=== PATIENT | male | born 1990 | race Caucasian/White ===

== ENCOUNTER 2016-09-13 22:36 | Emergency (ER) | payer SELFPAY ==
[~2016-09-13 22:36] MED LIST: ANAPHYLACTIC KI1 KIT IM; ATARAX PO; BENADRYL PO; ELIMITE TOP; ELIMITE60 GM TOP; IBUPROFEN800 MG PO; NO MEDICATIONS; PEN-VEE K PO; PREDNISONE PO; TYLENOL #3 PO; VEETIDS 500500 M1 PO
== END 2016-09-13 23:01 | disposition home or self-care (01) ==
LOC: SED 22:36
DX: K05.219 Aggressive periodontitis, localized, unspecified severity (principal); K02.9 Dental caries, unspecified; K03.81 Cracked tooth; F17.210 Nicotine dependence, cigarettes, uncomplicated
CPT/HCPCS: 99282